=== PATIENT | female | born 1970 | race Asian ===

== ENCOUNTER 2018-05-04 11:37 | Emergency (ER) | payer OTHER ==
[~2018-05-04] VITALS: Ht 162.6 cm; Wt 93.0 kg
[2018-05-04 11:40] VITALS: TEMP 97.5
[2018-05-04] MEDS ORDERED: FERROUS SULF324 MG PO (12:36)
[2018-05-04] MEDS ORDERED: K-TAB10 MEQ PO (12:37)
[2018-05-04] MEDS ORDERED: HYDROXYZINE HYD25 MG PO (12:38)
[2018-05-04] MEDS ORDERED: PEPCID40 MG PO (12:38)
[2018-05-04] MEDS ORDERED: MELOXICAM7.5 MG PO (12:39)
[2018-05-04] MEDS ORDERED: HYDROCHLOROT12.5 M1 PO (12:39)
[2018-05-04] MEDS ORDERED: VENLAFAXINE150 M1 PO (12:39)
[2018-05-04] MEDS ORDERED: LEVO-T25 MCG PO (12:41)
[2018-05-04 12:46] LABS: PLATELET COUNT 406 K/uL (152-353)
[2018-05-04 12:54] LABS: POTASSIUM 3.3 mmol/L (3.6-5.2)
[2018-05-04 13:29] VITALS: BP 144/82
== END 2018-05-04 13:29 | disposition home or self-care (01) ==
LOC: ED 11:37
PROVIDERS: Family Medicine
DX: R51 Headache (principal); J30.89 Other allergic rhinitis
CPT/HCPCS: 36415; 80053; 81000; 85027; 99283; J1885

== ENCOUNTER 2018-05-28 07:57 | Outpatient (CLI) | payer OTHER ==
[~2018-05-28 07:57] MED LIST: FERROUS SULF324 MG PO; HYDROCHLOROT12.5 M1 PO; HYDROXYZINE HYD25 MG PO; K-TAB10 MEQ PO; LEVO-T25 MCG PO; MELOXICAM7.5 MG PO; PEPCID40 MG PO; VENLAFAXINE150 M1 PO
[2018-05-28 09:06] LABS: PLATELET COUNT 404 K/uL (152-353)
[2018-05-28 09:26] LABS: POTASSIUM 3.3 mmol/L (3.6-5.2)
== END 2018-05-28 19:05 | disposition home or self-care (01) ==
LOC: LABW 07:57
PROVIDERS: Physician Assistant
DX: E03.9 Hypothyroidism, unspecified (principal); R63.4 Abnormal weight loss; D50.8 Other iron deficiency anemias; Z79.899 Other long term (current) drug therapy; E55.9 Vitamin D deficiency, unspecified
CPT/HCPCS: 36415; 80053; 80061; 82306; 83036; 83540; 83550; 84439; 84443; 85027

== ENCOUNTER 2018-09-16 16:05 | Outpatient (CLI) | payer OTHER ==
[2018-09-16 16:20] LABS: PLATELET COUNT 375 K/uL (152-353)
[2018-09-16 16:51] LABS: POTASSIUM 3.5 mmol/L (3.6-5.2)
== END 2018-09-16 20:15 | disposition home or self-care (01) ==
LOC: LABW 16:05
PROVIDERS: Physician Assistant
DX: E03.9 Hypothyroidism, unspecified (principal); E87.6 Hypokalemia; F32.9 Major depressive disorder, single episode, unspecified; D50.8 Other iron deficiency anemias
CPT/HCPCS: 36415; 80053; 83735; 84443; 85027

== ENCOUNTER 2019-02-15 15:18 | Outpatient (CLI) | payer OTHER ==
[2019-02-15 16:12] LABS: PLATELET COUNT 407 K/uL (152-353)
[2019-02-15 16:41] LABS: POTASSIUM 3.6 mmol/L (3.6-5.2)
== END 2019-02-15 19:20 | disposition home or self-care (01) ==
LOC: LABW 15:18
PROVIDERS: Internal Medicine
DX: I10 Essential (primary) hypertension (principal); E03.8 Other specified hypothyroidism; E55.9 Vitamin D deficiency, unspecified; D50.8 Other iron deficiency anemias
CPT/HCPCS: 36415; 80053; 80061; 81000; 82306; 83540; 84439; 84443; 85027

== ENCOUNTER 2019-06-09 13:35 | Outpatient (CLI) | payer OTHER | END 2019-06-09 19:03 | disposition home or self-care (01) | LOC: NM 13:35 | DX: K80.80 Other cholelithiasis without obstruction (principal) | CPT/HCPCS: A9537 ==

== ENCOUNTER 2019-07-21 11:09 | Outpatient (CLI) | payer OTHER ==
[2019-07-21 11:35] LABS: PLATELET COUNT 377 K/uL (152-353)
[2019-07-21 12:18] LABS: POTASSIUM 3.7 mmol/L (3.6-5.2)
== END 2019-07-21 20:41 | disposition home or self-care (01) ==
LOC: LABW 11:09
PROVIDERS: Internal Medicine
DX: I10 Essential (primary) hypertension (principal); D50.8 Other iron deficiency anemias; E03.8 Other specified hypothyroidism; E55.9 Vitamin D deficiency, unspecified
CPT/HCPCS: 36415; 80053; 80061; 81000; 82306; 84439; 84443; 85027

== ENCOUNTER 2020-03-26 11:15 | Outpatient (CLI) | payer OTHER ==
[2020-03-26 11:44] LABS: PLATELET COUNT 351 K/uL (152-353)
[2020-03-26 12:05] LABS: POTASSIUM 3.4 mmol/L (3.6-5.2)
== END 2020-03-26 21:09 | disposition home or self-care (01) ==
LOC: LABW 11:15
PROVIDERS: ATTEND Internal Medicine
DX: I10 Essential (primary) hypertension (principal); D50.8 Other iron deficiency anemias; E03.8 Other specified hypothyroidism; E55.9 Vitamin D deficiency, unspecified
CPT/HCPCS: 36415; 80053; 80061; 81000; 82306; 84439; 84443; 85027

== ENCOUNTER 2020-09-03 15:13 | Outpatient (CLI) | payer OTHER | END 2020-09-03 20:06 | disposition home or self-care (01) | LOC: RAD 15:13 | PROVIDERS: ATTEND Internal Medicine | DX: J40 Bronchitis, not specified as acute or chronic (principal) ==

== ENCOUNTER 2020-11-08 14:36 | Outpatient (CLI) | payer OTHER ==
[2020-11-08 15:24] LABS: POTASSIUM 3.1 mmol/L (3.6-5.2)
== END 2020-11-08 19:42 | disposition home or self-care (01) ==
LOC: LABW 14:36
PROVIDERS: ATTEND Internal Medicine
DX: I10 Essential (primary) hypertension (principal); E03.9 Hypothyroidism, unspecified
CPT/HCPCS: 36415; 80053; 81000; 84439; 84443

== ENCOUNTER 2020-12-31 15:15 | Outpatient (CLI) | payer OTHER ==
[2020-12-31 16:02] LABS: POTASSIUM 3.5 mmol/L (3.6-5.2)
== END 2020-12-31 19:40 | disposition home or self-care (01) ==
LOC: LABW 15:15
PROVIDERS: ATTEND Internal Medicine
DX: I10 Essential (primary) hypertension (principal); E03.8 Other specified hypothyroidism
CPT/HCPCS: 36415; 80053; 84439; 84443

== ENCOUNTER 2022-03-05 12:22 | Outpatient (CLI) | payer OTHER | END 2022-03-05 19:04 | disposition home or self-care (01) | LOC: RAD 12:22 | PROVIDERS: ATTEND Nurse Practitioner Family | DX: R05.1 Acute cough (principal); R06.02 Shortness of breath; R07.89 Other chest pain ==

== ENCOUNTER 2022-09-24 13:40 | Outpatient (CLI) | payer OTHER | END 2022-09-24 19:03 | disposition home or self-care (01) | LOC: MAMMO 13:40 | PROVIDERS: ATTEND Internal Medicine | DX: Z12.31 Encounter for screening mammogram for malignant neoplasm of breast (principal); Z78.0 Asymptomatic menopausal state ==